=== PATIENT | male | born 1970 | race Caucasian/White ===

== ENCOUNTER 2020-11-10 17:08 | Emergency (ER) | payer OTHER, SELFPAY ==
--- NOTE | ~2020-11-10 | XR_ITS ---
EXAMINATION: XR chest 2V DATE: 11/10/2020 18:06 INDICATION: 2 days of cough and chest pain TECHNIQUE: frontal and lateral views of the chest were obtained. COMPARISON: Chest radiograph dated 03/17/2015 FINDINGS: The lungs are clear with no focal airspace opacities, pulmonary edema, pleural effusion or pneumothor ax. The cardiomediastinal silhouette is normal. Mildly displaced likely subacute lateral right fifth rib fracture with associated soft tissue swelling mildly depressing the overlying pleura. Calcified f ormation about an additional healing anterior right seventh rib fracture. IMPRESSION: 1. A couple relatively recent right rib fractures. No acute cardiopulmonary disease. Reviewed, dictated and finalized at location A. IMPRESSION: 1. A couple relatively recent right rib fractures. No acute cardiopulmonary dis ease.
[2020-11-10 17:18] VITALS: BP 155/81; PULSE 73; RESP 20; TEMP 36.8; O2SAT 98
--- NOTE | 2020-11-10 17:51 | ED.GENADULT ---
HPI - General Adult General Chief complaint: Upper Respiratory Infection Stated complaint: Pain on right side of chest when coughing Source: patient Mode of arrival: ambulatory Limitations: no limitations History of Present Illness HPI narrative: Patient presents for evaluation of respiratory complaints. He indicates he has had right-sided pleuritic chest pain that started 2 nights ago. He denies significant cough per se but sees that if he clears his throat or intentionally coughs he feels pain in the right anterior chest. He rates pain 6 out of 10 in severity and notes worsening symptoms with movement. He states he has had similar symptoms in the past with pneumonia. He denies any fever, chills, nausea, vomiting, diarrhea, body aches. No recent sick contacts. He is a former smoker. He has not had COVID in the past. He has not received COVID vaccination. He took tramadol earlier, which did not help. 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 No additional complaints or concerns. Related Data Home Medications Medication Instructions Recorded Confirmed fenofibrate 160 mg PO DAILY 11/10/20 11/10/20 omeprazole 40 mg PO DAILY 11/10/20 11/10/20 tamsulosin 0.4 mg PO DAILY 11/10/20 11/10/20 tramadol 50 mg PO Q4-6H 11/10/20 11/10/20 Allergies Allergy/AdvReac Type Severity Reaction Status Date / Time No Known Allergies Allergy Verified 11/10/20 17:26 Review of Systems Review of Systems: Narrative: CONSTITUTIONAL: Denies fever, chills, or sweats. EYES: Denies visual changes, redness, or discharge. ENT: Denies rhinorrhea, congestion, sore throat, or otalgia. CARDIOVASCULAR: Reports right sided chest pain, pleuritic in nature. Denies palpitations, or edema. RESPIRATORY: Reports occasional nonproductive cough. Denies dyspnea. GASTROINTESTINAL: Denies abdominal pain, nausea, vomiting, or diarrhea. GENITOURINARY: Denies dysuria or hematuria. SKIN: Denies rash or itching. MUSCULOSKELETAL: Denies back pain, joint pain, or myalgia. NEUROLOGIC: Denies headache, numbness, dizziness, or weakness. PSYCHIATRIC: Denies anxiety or depression. [facility] Past Medical History Medical History No pertinent past medical history Surgical History Surgical History No pertinent past surgical history Family History Family History Father COPD (chronic obstructive pulmonary disease) Social History Social History Smoking status: Former smoker Substance use type: marijuana Living arrangements: with family Gender identity (if verbalized by the patient): Male Sexual Orientation (if Verbalized by the Patient): Straight or Heterosexual Spiritual care concerns: No Exam Narrative: Exam Narrative: GENERAL: Well-appearing, well-nourished, and in no acute distress. HEAD: Normocephalic, atraumatic. EYES: PERRLA and EOMI. ENT: Nares clear, no rhinorrhea or epistaxis. Mucous membranes moist. Oropharynx without tonsillar hypertrophy exudate or other lesions. Mild posterior pharyngeal erythema. Bilateral TM scarring NECK: Supple. No adenopathy or masses. No carotid bruits or JVD CHEST: Clear to auscultation. No respiratory distress. No wheezes rales or rhonchi. No chest wall tenderness, however pain is reproducible in the right anterior chest with movement from supine to sitting position. HEART: Regular rate and rhythm. No murmur heard. Normal peripheral pulses. ABDOMEN: Soft, nontender, nondistended, normal active bowel sounds. EXTREMITIES: Normal range of motion. No edema. SKIN: Warm, dry, no rash. NEURO: No focal deficits. Alert and oriented x3. PSYCH: Normal mood and affect. Course Course Emergency Course: This is a 50-year-old male that presents
--- NOTE | 2020-11-10 17:56 | ECG_ITS ---
Measurements Intervals [place] Rate: 54 P: 62 IA: 178 QRS: -35 QRSD: 110 T: 24 QT: 403 QTc: 384 Interpretive Statements SINUS BRADYCARDIA LEFT AXIS DEVIATION DELAYED PRECORDIAL R/S TRANSITION BORDERLINE ECG Electronically Signed On 11-10-2020 20:38:17 CDT by Neo Leary D.O.
[2020-11-10] MEDS: KETOROLAC (*BKC) 60 MG/2 ML VIAL IM (18:30)
[2020-11-12 17:52] LABS: SARS-CoV-2 RNA PCR Negative
== END 2020-11-10 19:12 | disposition home or self-care (01) ==
PROVIDERS: Emergency Provider Nurse Practitioner; PCP Physician Assistant
DX: S22.41XA Multiple fractures of ribs, right side, initial encounter for closed fracture (principal); X58.XXXA Exposure to other specified factors, initial encounter; Z20.822 Contact with and (suspected) exposure to COVID-19; Z87.891 Personal history of nicotine dependence
CPT/HCPCS: 71046; 87426; 93005; 96372; 99203; C9803; G0463; J1885; U0003; U0005

== ENCOUNTER 2022-04-14 10:05 | Emergency (ER) | payer OTHER, SELFPAY ==
[2022-04-14 10:20] VITALS: BP 152/80; PULSE 66; RESP 18; TEMP 35.6; O2SAT 99
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
== END 2022-04-14 11:46 | disposition home or self-care (01) ==
PROVIDERS: Emergency Provider Nurse Practitioner; PCP Physician Assistant
DX: M54.9 Dorsalgia, unspecified (principal); V49.40XA Driver injured in collision with unspecified motor vehicles in traffic accident, initial encounter; Z87.891 Personal history of nicotine dependence; F12.90 Cannabis use, unspecified, uncomplicated
CPT/HCPCS: 99213; G0463